=== PATIENT | male | born 1965 | race Caucasian/White ===

== ENCOUNTER 2023-04-20 19:05 | Observation (INO) | payer OTHER ==
[2023-04-20] VITALS (16 sets, daily range): BP systolic 95–189; BP diastolic 66–123
[~2023-04-20] VITALS: Ht 177.8 cm; Wt 88.4 kg
--- NOTE | 2023-04-20 19:05 | NUR ---
PATIENT AMBULATORY TO ROOM 8 FROM ER STRETCHER. PATIENT UNDRESSED INTO A GOWN, PLACED ON MONITOR. O2 SAT ON RA NOTED TO BE 91%, PLACED ON 2L VIA NC. TIRAGE COMPLETED AT BEDSIDE. PATIENT STATES HE HAD A RECENT CATH LAST WEEK. WENT TO ANOTHER ER LAST NIGHT FOR CHEST PAIN AND VOMITING AND WAS DISCHARGED HOME. COMES IN TODAY FOR CONTINUED CHEST PAIN AND VOMITING.
[2023-04-20] MEDS ORDERED: ELIQUIS5 MG PO (19:21)
[2023-04-20] MEDS ORDERED: COREG3.125 MG PO (19:22)
[2023-04-20] MEDS ORDERED: ENTRESTO 24-261 TAB PO (19:22)
[2023-04-20] MEDS ORDERED: ALDACTONE25 MG PO (19:22)
[2023-04-20] MEDS ORDERED: LEXAPRO10 MG PO (19:23)
[2023-04-20] MEDS ORDERED: PEPCID20 MG PO (19:23)
[2023-04-20] MEDS ORDERED: KLONOPIN0.5 MG PO (19:24)
[2023-04-20 19:48] LABS: BASO% 0.4 % (0-3); EOS% 0.4 % (0-8); HEMOGLOBIN 14.9 g/dl (14.0-18.0); LYMPH% 25.4 % (15-41); MEAN CELL VOLUME 91.9 fL CALC (80.0-100.0); MEAN CORPUSCULAR HGB 31.8 pG CALC (26.0-32.0); MEAN CORPUSCULAR HGB CONC 34.7 g/dL CAL (32.0-36.0); MONO% 7.2 % (2-13); NEUT# 3.81 thou/uL (1.82-7.42); NEUT% 66.6 % (42-76); RED BLOOD COUNT 4.68 mill/uL (4.70-6.10); RED CELL DISTRI WIDTH 12.7 % (11.5-15.5)
--- NOTE | 2023-04-20 19:55 | NUR ---
PATIENT MEDICATED ORDERED. WILL MONITOR PAIN FOR EFFECT.
[2023-04-20 20:15] LABS: ALKALINE PHOSPHATASE 43 u/l (38-126); ANION GAP 10 (6-22 (CALC)); BILIRUBIN, TOTAL 1.2 mg/dL (0.2-1.3); BUN 17 mg/dL (9-20); BUN/CREATININE RATIO 19 (12-20 (CALC)); CARBON DIOXIDE 20 mmol/l (22-30); CHLORIDE 112 mmol/l (95-108); CREATININE 0.9 mg/dL (0.7-1.3); GFR FOR AFR.AMER. > 60 ML/MIN (>=60 (CALC)); GFR OTHER RACES > 60 ML/MIN (>=60 (CALC)); POTASSIUM 3.6 mmol/l (3.5-5.1); SGOT/AST 124 u/l (17-59); SODIUM 137 mmol/l (137-146); TOTAL PROTEIN 6.4 g/dL (6.3-8.2)
--- NOTE | 2023-04-20 20:20 | NUR ---
PATIENT STATES NO CHANGE IN PAIN OR NAUSEA AFTER MEDICATED. MD AWARE.
[2023-04-20 20:38] LABS: AMYLASE 66 u/l (30-110); LIPASE 37 u/l (23-300)
--- NOTE | 2023-04-20 20:42 | NUR ---
PATIENT MEDICATED ADDITIONALLY FOR PAIN.
--- NOTE | 2023-04-20 21:05 | NUR ---
PATIENT RETURNS FROM CT. STATES HIS NAUSEA IS IMPROVED, HOWEVER STATES HIS CHEST PAIN IS UNCHANGED. RATES PAIN A 9 ON 1-10 PAIN SCALE.
--- NOTE | 2023-04-20 21:54 | NUR ---
MD AT BEDSIDE TO WAKE PATIENT FOR RE EVAL.
--- NOTE | 2023-04-20 22:10 | NUR ---
PATIENT C/O CHEST PAIN AT A 10/10, AWOKE PATIENT FOR MEDICATION, PATIENT NOW RESTING IN SEMI-FOWLERS POSITION, AIRWAY PATENT, RR EVEN AND UNLABORED, LIGHTS DIMMED FOR COMFORT, PATIENT UPDATED ON CONTINUOUS CARE PLAN.
--- NOTE | 2023-04-20 22:51 | NUR ---
MD AT BEDSIDE DISCUSSING PLAN OF CARE, WILL REPEAT TROPONIN AT 2330, PATIENT VERBALIZES UNDERSTANDING WITH NO FURTHER QUESTIONS.
[2023-04-21] VITALS (80 sets, daily range): BP systolic 84–142; BP diastolic 53–94
--- NOTE | 2023-04-21 00:30 | NUR ---
PATIENT RESTING ON STRETCHER WITH EYES CLOSED, AWAKENS TO NAME. PATIENT AWARE OF PLANS TO ADMIT. AWAITING ORDERS AND BED ASSIGNMENT.
--- NOTE | 2023-04-21 01:09 | NUR ---
REPORT CALLED TO NEGIN MARISCAL. PATIENT READIED FOR TRANSPORT TO FLOOR ON MONITOR WITH RN.
--- NOTE | 2023-04-21 01:47 | NUR ---
PT TRANSFERED TO ICU 1 BY MELISSA KAM ON STRETCHER AND MONITOR WITH NAD AND VSS. INDEPENDENTLY TRANSFERED FROM STRETCHER TO BED. SAFETY AND CALL LIGHT REVIEWED WITH PT AND HE AGREED. PT, SITTING UP IN BED WATCHING TV AND DRINKING WATER WITH NAD AND VSS, STATED HE HAD CHEST PAIN 8. MAR WAS CHECKED FOR PAIN MEDS, PT HAS NO ORDERS. ATTEMPTED TO LET THE PT KNOW AND PT WAS ALREADY ASLEEP. BED IN THE LOWEST POSITION WITH BEDSIDE TABLE AND CALL LIGHT WITHIN REACH. WILL CONTINUE TO MONITOR
--- NOTE | 2023-04-21 01:50 | NUR ---
PATIENT TRANSPORTED TO ICU 1, VSS.
--- NOTE | 2023-04-21 05:34 | NUR ---
PT SLEEPING WITH NAD AND VSS. BED IN THE LOWEST POSITION WITH BEDSIDE TABLE AND CALL LIGHT WITH IN REACH. WILL CONTINUE TO MONITOR.
[2023-04-21 07:39] LABS: HEMATOCRIT 45.4 % (39.0-50.0); HEMOGLOBIN 15.3 g/dl (14.0-18.0); MEAN CELL VOLUME 93.4 fL CALC (80.0-100.0); MEAN CORPUSCULAR HGB 31.5 pG CALC (26.0-32.0); MEAN CORPUSCULAR HGB CONC 33.7 g/dL CAL (32.0-36.0); RED BLOOD COUNT 4.86 mill/uL (4.70-6.10); RED CELL DISTRI WIDTH 12.8 % (11.5-15.5)
--- NOTE | 2023-04-21 08:00 | NUR ---
RCD REPORT FROM [employer] OFFICER. PT IS A/OX3 AND IS ON BEDREST PER REQUEST DUE TO PAIN. SKIN IS INTACT. PT STATES PAIN IS A 6/10, MD AWARE AND ORDERING MEDS. PULSES STORNG AND PALPABLE. BOWEL SOUNDS ARE ACTIVE. PT URINE IS WENDY. USES URINAL. LUNGS ARE CLEAR ON RA. PACED RHYTHM ON MONITOR. PLAN IS POSSIBLE CT ABD PER MD AND FLUIDS.
[2023-04-21 08:43] LABS: BUN 16 mg/dL (9-20); BUN/CREATININE RATIO 17 (12-20 (CALC)); CALCULATED LDLCHOLESTEROL 65 mg/dL (62-129 (CALC)); CHLORIDE 110 mmol/l (95-108); CHOLESTEROL HDL RATIO 4.9 (<4.4 (CALC)); CREATININE 0.9 mg/dL (0.7-1.3); GFR FOR AFR.AMER. > 60 ML/MIN (>=60 (CALC)); GFR OTHER RACES > 60 ML/MIN (>=60 (CALC)); HDL CHOLESTEROL 21 mg/dL (39.0-59.0); SODIUM 138 mmol/l (137-146); TOTAL CHOLESTEROL 102 mg/dl (0-199); TOTAL TRIGLYCERIDES 81 mg/dl (0-149); VLDL CHOLESTROL 16 mg/dl (8-62 (CALC))
[2023-04-21 08:44] LABS: ANION GAP 6 (6-22 (CALC)); CARBON DIOXIDE 26 mmol/l (22-30)
--- NOTE | 2023-04-21 12:00 | NUR ---
PT ATE CRACKERS AND IS NOW EATING HIS MASHED POTATOES FOR LUNHC. PT STATED PAIN MED MADE HIM FEEL ALOT BETTER. DENIES ANY COMPLAINT AT THIS TIME.
--- NOTE | 2023-04-21 16:00 | NUR ---
PT RESTING. PAIN MED RCD AND RELAXED PT. DENIES ANY COMPLAINTS.
--- NOTE | 2023-04-21 20:00 | NUR ---
PATIENT NOTED LYING IN BED WITH NO ACUTE DISTRESS NOTED. VSS. ASSESSMENT COMPLETED (SEE INTERVENTIONS). LUNGS CLEAR. BOWEL SOUNDS ACTIVE. SKIN INTACT. HE WAS MEDICATED FOR PAIN X1. PATIENT NOTED SLEEPING FOLLOWING DOSE. BED LOCKED, IN LOW POSITION. CALL LIGHT WITHIN REACH.
[2023-04-22] VITALS (9 sets, daily range): BP systolic 120–152; BP diastolic 71–127
--- NOTE | 2023-04-22 | NUR ---
PATIENT NOTED LYING IN BED SLEEPING COMFORTABLY WITH NO ACUTE DISTRESS NOTED. BED LOCKED, IN LOW POSITION, CALL LIGHT WITHIN REACH.
[2023-04-22 05:31] LABS: HEMATOCRIT 44.4 % (39.0-50.0); HEMOGLOBIN 15.1 g/dl (14.0-18.0); MEAN CELL VOLUME 93.5 fL CALC (80.0-100.0); MEAN CORPUSCULAR HGB 31.8 pG CALC (26.0-32.0); RED BLOOD COUNT 4.75 mill/uL (4.70-6.10); RED CELL DISTRI WIDTH 12.7 % (11.5-15.5)
[2023-04-22 05:47] LABS: ALBUMIN 2.9 g/dL (3.2-5.0); ALKALINE PHOSPHATASE 49 u/l (38-126); ANION GAP 8 (6-22 (CALC)); BILIRUBIN, TOTAL 1.1 mg/dL (0.2-1.3); BUN 17 mg/dL (9-20); BUN/CREATININE RATIO 19 (12-20 (CALC)); CARBON DIOXIDE 24 mmol/l (22-30); CHLORIDE 110 mmol/l (95-108); CREATININE 0.9 mg/dL (0.7-1.3); GFR FOR AFR.AMER. > 60 ML/MIN (>=60 (CALC)); GFR OTHER RACES > 60 ML/MIN (>=60 (CALC)); POTASSIUM 3.9 mmol/l (3.5-5.1); SGOT/AST 129 u/l (17-59); SODIUM 138 mmol/l (137-146); TOTAL PROTEIN 6.2 g/dL (6.3-8.2)
--- NOTE | 2023-04-22 07:00 | NUR ---
REPORT GIVEN TO ONCOMING NURSE.
--- NOTE | 2023-04-22 07:07 | NUR ---
RECEIVED BEDSIDE REPORT FROM NEGIN MOY. PT IS LYING IN BED WITH EYES CLOSED. ALL SAFETY MEASURES IN PLACE. VSS.
--- NOTE | 2023-04-22 08:12 | NUR ---
PT OFF UNIT TO CT SCAN ACCOMPANIED BY [employer]
[2023-04-22] MEDS ORDERED: PERCOCET 5/321 COMBO PO (10:39)
--- NOTE | 2023-04-22 13:21 | NUR ---
Discharge instructions given. Patient verbalizes understanding of same. Discharged in stable condition via Wheelchair to Home with volunteer. All belongings sent with pt.
== END 2023-04-22 13:20 | disposition home or self-care (01) ==
LOC: ED 19:05 → ED-I 04-21 → ED 04-21 00:25 → ICU 04-21 00:26
PROVIDERS: Emergency Medicine; Student in an Organized Health Care Education/Training Program; ADMIT Internal Medicine; ATTEND Internal Medicine
DX: R07.9 Chest pain, unspecified (principal); R10.9 Unspecified abdominal pain; R63.4 Abnormal weight loss; I25.10 Atherosclerotic heart disease of native coronary artery without angina pectoris; I50.9 Heart failure, unspecified; I71.40 Abdominal aortic aneurysm, without rupture, unspecified; I48.91 Unspecified atrial fibrillation; F17.210 Nicotine dependence, cigarettes, uncomplicated; B19.20 Unspecified viral hepatitis C without hepatic coma; Z95.5 Presence of coronary angioplasty implant and graft; Z95.810 Presence of automatic (implantable) cardiac defibrillator; Z79.01 Long term (current) use of anticoagulants; Z20.822 Contact with and (suspected) exposure to COVID-19
CPT/HCPCS: Q9967; S0164

== ENCOUNTER 2023-05-01 19:24 | Emergency (ER) | payer OTHER ==
[2023-05-01] VITALS (14 sets, daily range): BP systolic 106–137; BP diastolic 57–92
[~2023-05-01] VITALS: Ht 177.8 cm; Wt 90.0 kg
[~2023-05-01 19:24] MED LIST: ALDACTONE25 MG PO; COREG3.125 MG PO; ELIQUIS5 MG PO; ENTRESTO 24-261 TAB PO; KLONOPIN0.5 MG PO; LEXAPRO10 MG PO; PEPCID20 MG PO; PERCOCET 5/321 COMBO PO
[2023-05-01 19:54] LABS: BASO% 0.4 % (0-3); EOS% 0.8 % (0-8); HEMOGLOBIN 16.9 g/dl (14.0-18.0); IMMATURE GRANULOCYTES 0.1 % (0.0-5.0); LYMPH% 25.9 % (15-41); MEAN CORPUSCULAR HGB 30.8 pG CALC (26.0-32.0); MEAN CORPUSCULAR HGB CONC 33.5 g/dL CAL (32.0-36.0); MONO% 9.3 % (2-13); NEUT# 5.02 thou/uL (1.82-7.42); NEUT% 63.5 % (42-76); RED BLOOD COUNT 5.48 mill/uL (4.70-6.10); RED CELL DISTRI WIDTH 12.8 % (11.5-15.5)
[2023-05-01 19:55] LABS: HEMATOCRIT 50.4 % (39.0-50.0)
[2023-05-01 20:02] LABS: ALKALINE PHOSPHATASE 51 u/l (38-126); AMYLASE 57 u/l (30-110); ANION GAP 11 (6-22 (CALC)); BUN 25 mg/dL (9-20); BUN/CREATININE RATIO 28 (12-20 (CALC)); CARBON DIOXIDE 25 mmol/l (22-30); CHLORIDE 105 mmol/l (95-108); CREATININE 0.9 mg/dL (0.7-1.3); GFR FOR AFR.AMER. > 60 ML/MIN (>=60 (CALC)); GFR OTHER RACES > 60 ML/MIN (>=60 (CALC)); LIPASE 30 u/l (23-300); POTASSIUM 4.1 mmol/l (3.5-5.1); SGOT/AST 206 u/l (17-59); SODIUM 137 mmol/l (137-146)
[2023-05-01 20:12] LABS: ALBUMIN 3.6 g/dL (3.2-5.0); BILIRUBIN, TOTAL 1.9 mg/dL (0.2-1.3); TOTAL PROTEIN 7.6 g/dL (6.3-8.2)
[2023-05-01 23:04] LABS: URINE BLOOD DIPSTICK Trace-intact (NEGATIVE); URINE COLOR Yellow; URINE GLUCOSE - DIPSTICK Negative (NEGATIVE); URINE KETONE Trace mg/dL (NEGATIVE); URINE LEUK ESTERASE Negative (NEGATIVE); URINE NITRITE - DIPSTICK Negative (Negative); URINE PH 5.5 (4.5-8.0); URINE PROTEIN - DIPSTICK 30 mg/dL (NEG-TRACE)
[2023-05-01 23:06] LABS: URINE RBC 0-2 RBC/hpf (0-5)
== END 2023-05-01 23:00 | disposition left against medical advice (07) ==
LOC: ED 19:24
PROVIDERS: Emergency Medicine
DX: R10.33 Periumbilical pain (principal); I71.40 Abdominal aortic aneurysm, without rupture, unspecified; F19.10 Other psychoactive substance abuse, uncomplicated; K74.60 Unspecified cirrhosis of liver; I50.9 Heart failure, unspecified; F17.200 Nicotine dependence, unspecified, uncomplicated; Z53.29 Procedure and treatment not carried out because of patient's decision for other reasons; Z20.822 Contact with and (suspected) exposure to COVID-19
CPT/HCPCS: Q9967